=== PATIENT | male | born 1955 | race Native Hawaiian/Other Pacific Islander ===

== ENCOUNTER 2021-11-20 19:54 | Emergency (ER) | payer OTHER ==
[~2021-11-20] VITALS: Ht 177.8 cm; Wt 52.2 kg
[2021-11-20 20:05] VITALS: TEMP 98.7
[2021-11-20 20:15] LABS: PLATELET COUNT 284 K/uL (142-355)
[2021-11-20 20:24] LABS: POTASSIUM 3.9 mmol/L (3.6-5.2)
[2021-11-20 21:30] VITALS: BP 123/83
[2021-11-21] MEDS ORDERED: ACETAMINOPHEN RE (03:04)
[2021-11-21] MEDS ORDERED: BISACODYL LAXAT10 MG RE (03:10)
[2021-11-21] MEDS ORDERED: DICLOFENAC SODIUM1 % TD (03:13)
[2021-11-21] MEDS ORDERED: DEPAKOTE DR PO (03:15)
[2021-11-21] MEDS ORDERED: FINASTERIDE5 MG PO (03:16)
[2021-11-21] MEDS ORDERED: HYOSCYAMINE0.125 M2 PO (03:19)
[2021-11-21] MEDS ORDERED: HALO2CON2 PO (03:19)
[2021-11-21] MEDS ORDERED: LORA0.5T17 PO (03:22)
[2021-11-21] MEDS ORDERED: GNP MELATONIN MA5 MG PO (03:23)
[2021-11-21] MEDS ORDERED: MORPHINE PO (03:27)
[2021-11-21] MEDS ORDERED: NITROFUR MAC50 MG PO (03:29)
[2021-11-21] MEDS ORDERED: OMEPRAZOLE DR20 MG PO (03:29)
[2021-11-21] MEDS ORDERED: OXYC5TAB24 PO (03:30)
[2021-11-21] MEDS ORDERED: PROCHLORPER10 MG PO (03:31)
[2021-11-21] MEDS ORDERED: SENNA-PLUS1 TAB PO (03:32)
[2021-11-21] MEDS ORDERED: SEROQUEL200 MG PO (03:32)
[2021-11-21] MEDS ORDERED: TAMSULOSIN HYD0.4 MG PO (03:33)
[2021-11-21] MEDS ORDERED: TRAMADOL HYDROC50 MG PO (03:38)
[2021-11-22] MEDS ORDERED: OLANZAPINE10 M1 IM (14:24)
== END 2021-11-20 21:30 | disposition still patient (30) ==
LOC: ED 19:54
PROVIDERS: Hospitalist
DX: F25.8 Other schizoaffective disorders (principal); F03.91 Unspecified dementia, unspecified severity, with behavioral disturbance; R45.1 Restlessness and agitation; Z11.52 Encounter for screening for COVID-19; Z04.6 Encounter for general psychiatric examination, requested by authority
CPT/HCPCS: 36415; 80053; 85027; 87635; 93005; 96374; 96375; 99284; J1200; J2060; U0003